=== PATIENT | male | born 1995 | race Caucasian/White ===

== ENCOUNTER 2016-04-22 11:28 | Emergency (ER) | payer OTHER ==
[2016-04-22] MEDS ORDERED: ONDANSETRON 4MG/2ML VIAL (J2405) As Ordered ONE (12:44)
[2016-04-22] MEDS ORDERED: KETOROLAC 30 MG/ML VIAL (J1885) As Ordered ONE (12:44)
[2016-04-22 13:11] LABS: BASO % 0.6 % (0.0-1.0); EOS # 0.4 K/mm3 (0.0-0.50); EOS % 7.2 % (0.0-3.0); LARGE UNSTAINED CELL # 0.2 K/mm3 (0.0-0.4); LARGE UNSTAINED CELL % 2.7 % (0.0-4.0); LYMPH # 1.3 K/mm3 (1.5-6.5); LYMPH % 21.8 % (24.0-44.0); MEAN CORPUSCULAR HGB CONC 34.1 g/dl (32.0-36.5); MEAN CORPUSCULAR VOLUME 88.1 fl (80.0-96.0); MONO # 0.4 K/mm3 (0.0-0.8); MONO % 6.6 % (0.0-5.0); NEUTROPHILS # 3.6 K/mm3 (1.8-7.7); NEUTROPHILS % 61.1 % (36.0-66.0); PLATELET COUNT, AUTOMATED 211 k/mm3 (150-450); RED CELL DISTRIBUTION WIDTH 12.2 % (11.5-14.5); WHITE BLOOD COUNT 5.8 K/mm3 (4.0-10.0)
[2016-04-22 13:31] LABS: ALBUMIN 4.1 GM/DL (3.2-5.2); ALBUMIN/GLOBULIN RATIO 1.21 (1.00-1.93); ALKALINE PHOSPHATASE 76 U/L (45-117); ALT/SGPT 23 U/L (12-78); ANION GAP 8 MEQ/L (8-16); AST/SGOT 14 U/L (15-37); BILIRUBIN,DIRECT 0.2 MG/DL (0.0-0.2); BILIRUBIN,TOTAL 0.7 MG/DL (0.2-1.0); BLOOD UREA NITROGEN 6 MG/DL (7-18); CALCIUM LEVEL 8.6 MG/DL (8.5-10.1); CARBON DIOXIDE LEVEL 26 MEQ/L (21-32); CHLORIDE LEVEL 108 MEQ/L (98-107); CREATININE FOR GFR 0.77 MG/DL (0.70-1.30); GLUCOSE, FASTING 82 MG/DL (70-105); POTASSIUM SERUM 3.8 MEQ/L (3.5-5.1); SODIUM LEVEL 142 MEQ/L (136-145); TOTAL PROTEIN 7.5 GM/DL (6.4-8.2)
--- NOTE | 2016-04-22 14:33 | EDDOCDS ---
Physician Documentation [facility] Name: Riley Whitman Age: 20 yrs Sex: Male : 1995 Arrival Date: 04/22/2016 Time: 11:28 Bed I5 / M5 Private MD: Luis Aguilar [facility] Disposition: 04/22/16 14:05 Discharged to Home/Self Care. Impression: Nausea and vomiting, Diarrhea, unspecified. - Condition is Stable. - Discharge Instructions: Diarrhea, Nausea and Vomiting. - Prescriptions for ZOFRAN ODT 4 mg - dissolve 1 tablet by ORAL route 4 times per day As needed do not chew, do not swallow whole; 10 tablet. - Medication Reconciliation form. - Follow up: Emergency Department; When: As needed; Reason: Worsening of conditions. Follow up: Luis Aguilar [facility]; When: Call to arrange an appointment; Reason: Wound/Symptom Recheck, Recheck today's complaints, Continuance of care. - Problem is an ongoing problem. - Symptoms are unchanged. Historical: - Allergies: no known allergies; - Home Meds: 1. none - PMHx: none; - PSHx: none; - Social history: Smoking status: Patient states was never smoker of tobacco. No barriers to communication noted, The patient speaks fluent [place], Speaks appropriately for age. - Family history: Not pertinent. - : The pt / caregiver states he / she is not on anticoagulants. Home medication list is obtained from the patient. - Exposure Risk Screening:: None identified. Vital Signs: 04/22 11:29 BP 122 / 53; Pulse 81; Resp 18; Temp 97.0(T); Pulse Ox 100% on R/A; Weight 79.38 kg / dem1 175 lbs (R); Height 5 ft. 9 in. (175.26 cm); Pain 9/10; 14:15 BP 131 / 85; Pulse 57; Resp 18; Temp 98.6(TE); Pulse Ox 98% on R/A; Pain 3/10; rn1 11:29 Body Mass Index 25.84 (79.38 kg, 175.26 cm) dem1 MDM: 12:41 NS 0.9% 1000 ml IV at bolus once ordered. cc10 12:42 Ondansetron 4 mg IVP once ordered. cc10 12:42 ketorolac 30 mg IVP once ordered. cc10 12:42 IV Saline Lock ordered. cc10 12:42 Undress patient appropriately for examination ordered. cc10 12:42 Basic Metabolic Profile Ordered. EDMS 12:42 CBC with Diff Ordered. EDMS 12:42 Lipase Ordered. EDMS 12:42 Liver Profile Ordered. EDMS 12:42 Urinalysis Ordered. EDMS 12:45 NOTHING BY MOUTH+DIET ordered. EDMS 13:00 Financial registration complete. mm15 13:05 [facility] Payment Agreement was scanned into [employer] and attached to record. mm15 14:02 Basic Metabolic Profile Reviewed. cc10 14:02 CBC with Diff Reviewed. cc10 14:02 Liver Profile Reviewed. cc10 14:02 Urinalysis Reviewed. cc10 14:02 Lipase Reviewed. cc10 Administered Medications: 12:50 Drug: NS 0.9% 1000 ml [sodium chloride 0.9 % intravenous solution] Route: IV; Rate: ttb bolus; Site: left antecubital; 14:15 Follow up: Response: No Adverse Reaction; IV Status: Completed infusion; IV Intake: ttb 1000ml 12:50 Drug: ketorolac 30 mg [ketorolac 30 mg/mL (1 mL) injection solution (1 mL)] Route: IVP; ttb Site: left antecubital; 13:30 Follow up: Response: No Adverse Reaction; Pain is resolved ttb 13:03 Drug: Ondansetron 4 mg [ondansetron HCl 2 mg/mL intravenous solution (2 mL)] Route: ttb IVP; Site: left antecubital; 14:00 Follow up: Response: No Adverse Reaction ttb Signatures: Dispatcher [facility] EDCoty CrystalRN RN dsOfe Roberto RN RN ttb Leeann Petty mm15 Matt Joe PA-C PAColeen cc10 The chart was reviewed and I authenticate all verbal orders and agree with the evaluation and treatment provided.Attachments: 13:05 [facility] Payment Agreement mm15 MTDD
--- NOTE | 2016-04-22 14:33 | EDDOCDS ---
Nurse's Notes [facility] Name: Riley Whitman Age: 20 yrs Sex: Male : 1995 Arrival Date: 04/22/2016 Time: 11:28 Bed I5 / M5 Private MD: Luis Aguilar [facility] Diagnosis: Nausea and vomiting;Diarrhea, unspecified Presentation: 04/22 11:39 Presenting complaint: Patient states: for the past 5 days pt c/o nausea, vomiting, dsf diarrhea and abdominal pain. Adult Sepsis Screening: The patient does not have new or worsening altered mentation. Patient's respiratory rate is less than 22. Systolic blood pressure is greater than 100. Patient has a qSOFA score of 0- Negative Sepsis Screen. Suicide/Homicide risk assessment- the patient denies having any suicidal and/or homicidal ideations and does not present with any other emotional, behavioral or mental health complaints. 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 Transition of care: patient was not received from another setting of care. 11:39 Acuity: MIGUEL Level 3 dsf 11:39 Method Of Arrival: Walkin/Carried/Asstd dsf Triage Assessment: 11:40 General: Appears in no apparent distress, Behavior is appropriate for age, cooperative. dsf Pain: Location: right lower quadrant and left lower quadrant Pain currently is 3 out of 10 on a pain scale. HIV screening NA for this visit active duty . EENT: Reports pain in throat. GI: Reports diarrhea, lower abdominal pain, nausea, vomiting. 11:40 Neurological: Reports headache lightheaded . dsf Historical: - Allergies: no known allergies; - Home Meds: 1. none - PMHx: none; - PSHx: none; - Social history: Smoking status: Patient states was never smoker of tobacco. No barriers to communication noted, The patient speaks fluent Cymraes, Speaks appropriately for age. - Family history: Not pertinent. - : The pt / caregiver states he / she is not on anticoagulants. Home medication list is obtained from the patient. - Exposure Risk Screening:: None identified. Screenin:03 Screening information is obtained from the patient. Fall risk: No risks identified. ttb Assistance ADL's: requires no assistance with activities of daily living. Abuse/DV Screen: The patient / caregiver reports he/she is:. Nutritional screening: No deficits noted. Advance Directives: Currently, there is no health care proxy. home support is adequate. Assessment: 13:03 Adult Sepsis Screening: The patient does not have new or worsening altered mentation. ttb Patient's respiratory rate is less than 22. Systolic blood pressure is greater than 100. Patient has a qSOFA score of 0- Negative Sepsis Screen. General: Appears in no apparent distress, well nourished, well groomed, Behavior is appropriate for age, cooperative, pleasant. Pain: Location: generalized abd, lower abd when vomiting. Neurological: Level of Consciousness is awake, alert. EENT: Reports sore throat when swallowing . Cardiovascular: Chest pain is denied. Respiratory: No deficits noted. Airway is patent Denies cough, shortness of breath. GI: Abdomen is non- distended Bowel sounds present X 4 quads. Abd is soft X 4 quads. Derm: Skin is normal. Injury Description: No known injury. 14:31 Reassessment: Patient appears in no apparent distress at this time. Patient denies pain ttb at this time. Patient states feeling better. Patient states symptoms have improved. pt states he is ready for DC. . Pain: Denies pain. Neurological: Level of Consciousness is awake, alert. Cardiovascular: Chest pain is denied. Respiratory: No deficits noted. Airway is patent Denies cough, shortness of breath. GI: Denies diarrhea, nausea, vomiting. Vital Signs: 11:29 BP 122 / 53; Pulse 81; Resp 18; Temp 97.0(T); Pulse Ox 100% on R/A; Weight 79.38 kg [facility] (R); Height 5 ft. 9 in. (175.26 cm); Pain 9/10; 14:15 BP 131 / 85; Pulse 57; Resp 18; Temp 98.6(TE); Pulse Ox 98% on R/A; Pain 3/10; rn1 11:29 Body Mass Index 25.84 (79.38 kg, 175.26 cm) [facility] Vitals: 11:29 Log In Time: April 22, 2016 at 11:28. [facility] ED Course: 11:29 Patient visited by Pola Partida. [facility] 11:29 [facility] is Private Physician. dem1 11:29 Patient moved to Waiting dem1 11:30 Patient moved to Pre R[facility] 11:40 Triage Initiated dsf 12:11 Patient moved to Triage 2 dsf 12:29 [facility] cc10 12:29 Milena Smith MD is Attending Physician. cc10 12:38 Patient visited by Matt Joe PA-C. cc10 12:38 Patient visited by Matt Joe PA-C. cc10 12:43 Patient moved to I5 / M5 kr3 13:03 The patient / caregiver is instructed regarding the plan of care and ED course. Patient ttb has correct armband on for positive identification. Placed in gown. Call light in reach. Side rails up X 1. 13:03 Liver Profile Sent. ttb 13:03 Lipase Sent. ttb 13:03 CBC with Diff Sent. ttb 13:03 Basic Metabolic Profile Sent. ttb 13:03 Inserted peripheral IV: 20gauge IV in left antecubital area and blood collected. ttb Patient tolerated the procedure well. Labs drawn. (by ED staff). 13:05 Patient visited by Ofe Kirk RN. ttb 13:05 [facility] Payment Agreement was scanned into [email or web address] and attached to record. mm15 13:41 Urinalysis Sent. ttb 14:05 Luis Aguilar [facility] is Referral Physician. cc10 14:31 Discontinued IV lock intact, bleeding controlled, pressure dressing applied, No ttb redness/swelling at site. No procedures done that require assistance. Administered Medications: 12:50 Drug: NS 0.9% 1000 ml [sodium chloride 0.9 % intravenous solution] Route: IV; Rate: ttb bolus; Site: left antecubital; 14:15 Follow up: Response: No Adverse Reaction; IV Status: Completed infusion; IV Intake: ttb 1000ml 12:50 Drug: ketorolac 30 mg [ketorolac 30 mg/mL (1 mL) injection solution (1 mL)] Route: IVP; ttb Site: left antecubital; 13:30 Follow up: Response: No Adverse Reaction; Pain is resolved ttb 13:03 Drug: Ondansetron 4 mg [ondansetron HCl 2 mg/mL intravenous solution (2 mL)] Route: ttb IVP; Site: left antecubital; 14:00 Follow up: Response: No Adverse Reaction ttb Intake: 14:15 IV: 1000.00ml; Total: 1000.00ml. ttb Order Results: Lab Order: Basic Metabolic Profile; SPEC'M 04/22/16 12:59 Test: GLUCOSE, FASTING; Value: 82; Range: 70-105; Units: MG/DL; Status: F Test: BLOOD UREA NITROGEN; Value: 6; Range: 7-18; Abnormal: Below low normal; Units: MG/DL; Status: F Test: CREATININE FOR GFR; Value: 0.77; Range: 0.70-1.30; Units: MG/DL; Status: F Test: SODIUM LEVEL; Value: 142; Range: 136-145; Units: MEQ/L; Status: F Test: POTASSIUM SERUM; Value: 3.8; Range: 3.5-5.1; Units: MEQ/L; Status: F Test: CHLORIDE LEVEL; Value: 108; Range: 98-107; Abnormal: Above high normal; Units: MEQ/L; Status: F Test: CARBON DIOXIDE LEVEL; Value: 26; Range: 21-32; Units: MEQ/L; Status: F Test: ANION GAP; Value: 8; Range: 8-16; Units: MEQ/L; Status: F Test: CALCIUM LEVEL; Value: 8.6; Range: 8.5-10.1; Units: MG/DL; Status: F Lab Order: CBC with Diff; SPECM 04/22/16 12:59 Test: WHITE BLOOD COUNT; Value: 5.8; Range: 4.0-10.0; Units: K/mm3; Status: F Test: RED BLOOD COUNT; Value: 4.78; Range: 4.30-6.10; Units: M/mm3; Status: F Test: HEMOGLOBIN; Value: 14.4; Range: 14.0-18.0; Units: g/dl; Status: F Test: HEMATOCRIT; Value: 42.1; Range: 42.0-52.0; Units: %; Status: F Test: MEAN CORPUSCULAR VOLUME; Value: 88.1; Range: 80.0-96.0; Units: fl; Status: F Test: MEAN CORPUSCULAR HEMOGLOBIN; Value: 30.0; Range: 27.0-33.0; Units: pg; Status: F Test: MEAN CORPUSCULAR HGB CONC; Value: 34.1; Range: 32.0-36.5; Units: g/dl; Status: F Test: RED CELL DISTRIBUTION WIDTH; Value: 12.2; Range: 11.5-14.5; Units: %; Status: F Test: PLATELET COUNT, AUTOMATED; Value: 211; Range: 150-450; Units: k/mm3; Status: F Test: NEUTROPHILS %; Value: 61.1; Range: 36.0-66.0; Units: %; Status: F Test: LYMPH %; Value: 21.8; Range: 24.0-44.0; Abnormal: Below low normal; Units: %; Status: F Test: MONO %; Value: 6.6; Range: 0.0-5.0; Abnormal: Above high normal; Units: %; Status: F Test: EOS %; Value: 7.2; Range: 0.0-3.0; Abnormal: Above high normal; Units: %; Status: F Test: BASO %; Value: 0.6; Range: 0.0-1.0; Units: %; Status: F Test: LARGE UNSTAINED CELL %; Value: 2.7; Range: 0.0-4.0; Units: %; Status: F Test: NEUTROPHILS #; Value: 3.6; Range: 1.8-7.7; Units: K/mm3; Status: F Test: LYMPH #; Value: 1.3; Range: 1.5-6.5; Abnormal: Below low normal; Units: K/mm3; Status: F Test: MONO #; Value: 0.4; Range: 0.0-0.8; Units: K/mm3; Status: F Test: EOS #; Value: 0.4; Range: 0.0-0.50; Units: K/mm3; Status: F Test: BASO #; Value: 0.0; Range: 0.0-0.2; Units: K/mm3; Status: F Test: LARGE UNSTAINED CELL #; Value: 0.2; Range: 0.0-0.4; Units: K/mm3; Status: F Lab Order: Lipase; SPEC'M 04/22/16 12:59 Test: LIPASE; Value: 144; Range: 73-393; Units: U/L; Status: F Lab Order: Liver Profile; SPEC'M 04/22/16 12:59 Test: AST/SGOT; Value: 14; Range: 15-37; Abnormal: Below low normal; Units: U/L; Status: F Test: ALT/SGPT; Value: 23; Range: 12-78; Units: U/L; Status: F Test: ALKALINE PHOSPHATASE; Value: 76; Range: 45-117; Units: U/L; Status: F Test: BILIRUBIN,TOTAL; Value: 0.7; Range: 0.2-1.0; Units: MG/DL; Status: F Test: BILIRUBIN,DIRECT; Value: 0.2; Range: 0.0-0.2; Units: MG/DL; Status: F Test: TOTAL PROTEIN; Value: 7.5; Range: 6.4-8.2; Units: GM/DL; Status: F Test: ALBUMIN; Value: 4.1; Range: 3.2-5.2; Units: GM/DL; Status: F Test: ALBUMIN/GLOBULIN RATIO; Value: 1.21; Range: 1.00-1.93; Status: F Lab Order: Urinalysis; SPEC'M 04/22/16 13:32 Test: APPEARANCE, URINE; Value: CLEAR; Range: CLEAR; Status: F Test: COLOR, URINE; Value: YELLOW; Range: YELLOW; Status: F Test: PH,URINE; Value: 6.0; Range: 5.0-9.0; Units: UNITS; Status: F Test: SPECIFIC GRAVITY URINE AUTO; Value: 1.016; Range: 1.002-1.035; Status: F Test: PROTEIN, URINE AUTO; Value: NEGATIVE; Range: NEGATIVE; Units: mg/dL; Status: F Test: GLUCOSE, URINE (UA) AUTO; Value: NEGATIVE; Range: NEGATIVE; Units: mg/dL; Status: F Test: KETONE, URINE AUTO; Value: NEGATIVE; Range: NEGATIVE; Units: mg/dL; Status: F Test: UROBILINOGEN, URINE AUTO; Value: 2.0; Range: 0.0-2.0; Abnormal: Above high normal; Units: mg/dL; Status: F Test: BILIRUBIN, URINE AUTO; Value: NEGATIVE; Range: NEGATIVE; Status: F Test: NITRITE, URINE AUTO; Value: NEGATIVE; Range: NEGATIVE; Status: F Test: LEUKOCYTE ESTERASE, URINE AUTO; Value: NEGATIVE; Range: NEGATIVE; Status: F Test: BLOOD, URINE BLOOD; Value: NEGATIVE; Range: NEGATIVE; Status: F Test: WBC, URINE AUTO; Value: 2; Range: 0-3; Units: /HPF; Status: F Test: RBC, URINE AUTO; Value: 1; Range: 0-3; Units: /HPF; Status: F Test: BACTERIA, URINE AUTO; Value: NEGATIVE; Range: NEGATIVE; Status: F Test: SQUAMOUS EPITHELIAL CELL UR AU; Value: 0; Range: 0-6; Units: /HPF; Status: F Test: MUCUS, URINE; Value: SMALL; Range: NEGATIVE; Status: F Test: HYALINE CAST, URINE AUTO; Value: 0; Range: 0-1; Units: /LPF; Status: F Outcome: 14:05 Discharge ordered by Provider. cc10 14:31 Discharge Assessment: Patient awake, alert and oriented x 3. No cognitive and/or ttb functional deficits noted. Patient verbalized understanding of disposition instructions. Patient awake and alert. patient administered narcotics - no. The following High Risk Discharge criteria are identified: None. Discharged to home ambulatory. Condition: good Condition: stable Condition: improved. Discharge instructions given to patient, Instructed on discharge instructions, follow up and referral plans. medication usage, diet, Demonstrated understanding of instructions, medications, diet Prescriptions given X 1. No special radiology studies were completed. Property :Personal belongings accompany Pt. 14:33 Patient left the ED. ttb Signatures: Verona LightRN RN kr3 Coty GuzmánRN RN Pola Crouch1 Ofe Kirk RN RN ttb Leeann Petty mm15 Matt Joe PA-C PA-C cc10 Preston Puckett rn1 MTDD
--- NOTE | 2016-04-24 15:33 | EDDOCDS ---
Physician Documentation [facility] Name: Riley Whitman Age: 20 yrs Sex: Male : 1995 Arrival Date: 04/22/2016 Time: 11:28 Bed I5 / M5 Private MD: Luis Aguilar [facility] Disposition: 04/22/16 14:05 Discharged to Home/Self Care. Impression: Nausea and vomiting, Diarrhea, unspecified. - Condition is Stable. - Discharge Instructions: Diarrhea, Nausea and Vomiting. - Prescriptions for ZOFRAN ODT 4 mg - dissolve 1 tablet by ORAL route 4 times per day As needed do not chew, do not swallow whole; 10 tablet. - Medication Reconciliation form. - Follow up: Emergency Department; When: As needed; Reason: Worsening of conditions. Follow up: Luis Aguilar [facility]; When: Call to arrange an appointment; Reason: Wound/Symptom Recheck, Recheck today's complaints, Continuance of care. - Problem is an ongoing problem. - Symptoms are unchanged. Historical: - Allergies: no known allergies; - Home Meds: 1. none - PMHx: none; - PSHx: none; - Social history: Smoking status: Patient states was never smoker of tobacco. No barriers to communication noted, The patient speaks fluent Belizean, Speaks appropriately for age. - Family history: Not pertinent. - : The pt / caregiver states he / she is not on anticoagulants. Home medication list is obtained from the patient. - Exposure Risk Screening:: None identified. Vital Signs: 04/22 11:29 BP 122 / 53; Pulse 81; Resp 18; Temp 97.0(T); Pulse Ox 100% on R/A; Weight 79.38 kg / dem1 175 lbs (R); Height 5 ft. 9 in. (175.26 cm); Pain 9/10; 14:15 BP 131 / 85; Pulse 57; Resp 18; Temp 98.6(TE); Pulse Ox 98% on R/A; Pain 3/10; rn1 11:29 Body Mass Index 25.84 (79.38 kg, 175.26 cm) dem1 MDM: 12:41 NS 0.9% 1000 ml IV at bolus once ordered. cc10 12:42 Ondansetron 4 mg IVP once ordered. cc10 12:42 ketorolac 30 mg IVP once ordered. cc10 12:42 IV Saline Lock ordered. cc10 12:42 Undress patient appropriately for examination ordered. cc10 12:42 Basic Metabolic Profile Ordered. EDMS 12:42 CBC with Diff Ordered. EDMS 12:42 Lipase Ordered. EDMS 12:42 Liver Profile Ordered. EDMS 12:42 Urinalysis Ordered. EDMS 12:45 NOTHING BY MOUTH+DIET ordered. EDMS 13:00 Financial registration complete. mm15 13:05 [facility] Payment Agreement was scanned into [employer] and attached to record. mm15 14:02 Basic Metabolic Profile Reviewed. cc10 14:02 CBC with Diff Reviewed. cc10 14:02 Liver Profile Reviewed. cc10 14:02 Urinalysis Reviewed. cc10 14:02 Lipase Reviewed. cc10 04/23 07:57 T-Sheet-- Draft Copy was scanned into [employer] and attached to record. gb Administered Medications: 04/22 12:50 Drug: NS 0.9% 1000 ml [sodium chloride 0.9 % intravenous solution] Route: IV; Rate: ttb bolus; Site: left antecubital; 14:15 Follow up: Response: No Adverse Reaction; IV Status: Completed infusion; IV Intake: ttb 1000ml 12:50 Drug: ketorolac 30 mg [ketorolac 30 mg/mL (1 mL) injection solution (1 mL)] Route: IVP; ttb Site: left antecubital; 13:30 Follow up: Response: No Adverse Reaction; Pain is resolved ttb 13:03 Drug: Ondansetron 4 mg [ondansetron HCl 2 mg/mL intravenous solution (2 mL)] Route: ttb IVP; Site: left antecubital; 14:00 Follow up: Response: No Adverse Reaction ttb Signatures: Dispatcher [employer] EDMS Irina Jerome, Reg Reg gb Coty Guzmán RN RN dsf Ofe Kirk RN RN ttb Leeann Petty mm15 Matt Joe PA-C PAColeen cc10 The chart was reviewed and I authenticate all verbal orders and agree with the evaluation and treatment provided.Attachments: 13:05 [facility] Payment Agreement mm15 04/23 07:57 T-Sheet-- Draft Copy gb Chart Complete MTDD
--- NOTE | 2016-04-24 15:33 | EDDOCDS ---
Physician Documentation [facility] Name: Riley Whitman Age: 20 yrs Sex: Male : 1995 Arrival Date: 04/22/2016 Time: 11:28 Bed I5 / M5 Private MD: Luis Aguilar [facility] Disposition: 04/22/16 14:05 Discharged to Home/Self Care. Impression: Nausea and vomiting, Diarrhea, unspecified. - Condition is Stable. - Discharge Instructions: Diarrhea, Nausea and Vomiting. - Prescriptions for ZOFRAN ODT 4 mg - dissolve 1 tablet by ORAL route 4 times per day As needed do not chew, do not swallow whole; 10 tablet. - Medication Reconciliation form. - Follow up: Emergency Department; When: As needed; Reason: Worsening of conditions. Follow up: Luis Aguilar [facility]; When: Call to arrange an appointment; Reason: Wound/Symptom Recheck, Recheck today's complaints, Continuance of care. - Problem is an ongoing problem. - Symptoms are unchanged. Historical: - Allergies: no known allergies; - Home Meds: 1. none - PMHx: none; - PSHx: none; - Social history: Smoking status: Patient states was never smoker of tobacco. No barriers to communication noted, The patient speaks fluent Georgian, Speaks appropriately for age. - Family history: Not pertinent. - : The pt / caregiver states he / she is not on anticoagulants. Home medication list is obtained from the patient. - Exposure Risk Screening:: None identified. Vital Signs: 04/22 11:29 BP 122 / 53; Pulse 81; Resp 18; Temp 97.0(T); Pulse Ox 100% on R/A; Weight 79.38 kg / dem1 175 lbs (R); Height 5 ft. 9 in. (175.26 cm); Pain 9/10; 14:15 BP 131 / 85; Pulse 57; Resp 18; Temp 98.6(TE); Pulse Ox 98% on R/A; Pain 3/10; rn1 11:29 Body Mass Index 25.84 (79.38 kg, 175.26 cm) dem1 MDM: 12:41 NS 0.9% 1000 ml IV at bolus once ordered. cc10 12:42 Ondansetron 4 mg IVP once ordered. cc10 12:42 ketorolac 30 mg IVP once ordered. cc10 12:42 IV Saline Lock ordered. cc10 12:42 Undress patient appropriately for examination ordered. cc10 12:42 Basic Metabolic Profile Ordered. EDMS 12:42 CBC with Diff Ordered. EDMS 12:42 Lipase Ordered. EDMS 12:42 Liver Profile Ordered. EDMS 12:42 Urinalysis Ordered. EDMS 12:45 NOTHING BY MOUTH+DIET ordered. EDMS 13:00 Financial registration complete. mm15 13:05 [facility] Payment Agreement was scanned into [employer] and attached to record. mm15 14:02 Basic Metabolic Profile Reviewed. cc10 14:02 CBC with Diff Reviewed. cc10 14:02 Liver Profile Reviewed. cc10 14:02 Urinalysis Reviewed. cc10 14:02 Lipase Reviewed. cc10 04/23 07:57 T-Sheet-- Draft Copy was scanned into [employer] and attached to record. gb Administered Medications: 04/22 12:50 Drug: NS 0.9% 1000 ml [sodium chloride 0.9 % intravenous solution] Route: IV; Rate: ttb bolus; Site: left antecubital; 14:15 Follow up: Response: No Adverse Reaction; IV Status: Completed infusion; IV Intake: ttb 1000ml 12:50 Drug: ketorolac 30 mg [ketorolac 30 mg/mL (1 mL) injection solution (1 mL)] Route: IVP; ttb Site: left antecubital; 13:30 Follow up: Response: No Adverse Reaction; Pain is resolved ttb 13:03 Drug: Ondansetron 4 mg [ondansetron HCl 2 mg/mL intravenous solution (2 mL)] Route: ttb IVP; Site: left antecubital; 14:00 Follow up: Response: No Adverse Reaction ttb Signatures: Dispatcher [employer] EDMS Irina Jerome, Reg Reg gb Coty Guzmán RN RN dsf Ofe Kirk RN RN ttb Leeann Petty mm15 Matt Joe PA-C PAColeen cc10 The chart was reviewed and I authenticate all verbal orders and agree with the evaluation and treatment provided.Attachments: 13:05 [facility] Payment Agreement mm15 04/23 07:57 T-Sheet-- Draft Copy gb Chart Complete MTDD
--- NOTE | 2016-04-24 15:33 | EDDOCDS ---
Nurse's Notes [facility] Name: Riley Whitman Age: 20 yrs Sex: Male : 1995 Arrival Date: 04/22/2016 Time: 11:28 Bed I5 / M5 Private MD: Luis Aguilar [facility] Diagnosis: Nausea and vomiting;Diarrhea, unspecified Presentation: 04/22 11:39 Presenting complaint: Patient states: for the past 5 days pt c/o nausea, vomiting, dsf diarrhea and abdominal pain. Adult Sepsis Screening: The patient does not have new or worsening altered mentation. Patient's respiratory rate is less than 22. Systolic blood pressure is greater than 100. Patient has a qSOFA score of 0- Negative Sepsis Screen. Suicide/Homicide risk assessment- the patient denies having any suicidal and/or homicidal ideations and does not present with any other emotional, behavioral or mental health complaints. 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 Transition of care: patient was not received from another setting of care. 11:39 Acuity: MIGUEL Level 3 dsf 11:39 Method Of Arrival: Walkin/Carried/Asstd dsf Triage Assessment: 11:40 General: Appears in no apparent distress, Behavior is appropriate for age, cooperative. dsf Pain: Location: right lower quadrant and left lower quadrant Pain currently is 3 out of 10 on a pain scale. HIV screening NA for this visit active duty . EENT: Reports pain in throat. GI: Reports diarrhea, lower abdominal pain, nausea, vomiting. 11:40 Neurological: Reports headache lightheaded . dsf Historical: - Allergies: no known allergies; - Home Meds: 1. none - PMHx: none; - PSHx: none; - Social history: Smoking status: Patient states was never smoker of tobacco. No barriers to communication noted, The patient speaks fluent [place], Speaks appropriately for age. - Family history: Not pertinent. - : The pt / caregiver states he / she is not on anticoagulants. Home medication list is obtained from the patient. - Exposure Risk Screening:: None identified. Screenin:03 Screening information is obtained from the patient. Fall risk: No risks identified. ttb Assistance ADL's: requires no assistance with activities of daily living. Abuse/DV Screen: The patient / caregiver reports he/she is:. Nutritional screening: No deficits noted. Advance Directives: Currently, there is no health care proxy. home support is adequate. Assessment: 13:03 Adult Sepsis Screening: The patient does not have new or worsening altered mentation. ttb Patient's respiratory rate is less than 22. Systolic blood pressure is greater than 100. Patient has a qSOFA score of 0- Negative Sepsis Screen. General: Appears in no apparent distress, well nourished, well groomed, Behavior is appropriate for age, cooperative, pleasant. Pain: Location: generalized abd, lower abd when vomiting. Neurological: Level of Consciousness is awake, alert. EENT: Reports sore throat when swallowing . Cardiovascular: Chest pain is denied. Respiratory: No deficits noted. Airway is patent Denies cough, shortness of breath. GI: Abdomen is non- distended Bowel sounds present X 4 quads. Abd is soft X 4 quads. Derm: Skin is normal. Injury Description: No known injury. 14:31 Reassessment: Patient appears in no apparent distress at this time. Patient denies pain ttb at this time. Patient states feeling better. Patient states symptoms have improved. pt states he is ready for DC. . Pain: Denies pain. Neurological: Level of Consciousness is awake, alert. Cardiovascular: Chest pain is denied. Respiratory: No deficits noted. Airway is patent Denies cough, shortness of breath. GI: Denies diarrhea, nausea, vomiting. Vital Signs: 11:29 BP 122 / 53; Pulse 81; Resp 18; Temp 97.0(T); Pulse Ox 100% on R/A; Weight 79.38 kg [facility] (R); Height 5 ft. 9 in. (175.26 cm); Pain 9/10; 14:15 BP 131 / 85; Pulse 57; Resp 18; Temp 98.6(TE); Pulse Ox 98% on R/A; Pain 3/10; rn1 11:29 Body Mass Index 25.84 (79.38 kg, 175.26 cm) [facility] Vitals: 11:29 Log In Time: April 22, 2016 at 11:28. [facility] ED Course: 11:29 Patient visited by Pola Partida. [facility] 11:29 [facility] is Private Physician. dem1 11:29 Patient moved to Waiting dem1 11:30 Patient moved to Pre RCE [facility] 11:40 Triage Initiated dsf 12:11 Patient moved to Triage 2 dsf 12:29 [facility] cc[facility] 12:29 Milena Smith MD is Attending Physician. cc10 12:38 Patient visited by Matt Joe PA-C. cc10 12:38 Patient visited by Matt Joe PA-C. cc10 12:43 Patient moved to I5 / kr3 13:03 The patient / caregiver is instructed regarding the plan of care and ED course. Patient ttb has correct armband on for positive identification. Placed in gown. Call light in reach. Side rails up X 1. 13:03 Liver Profile Sent. ttb 13:03 Lipase Sent. ttb 13:03 CBC with Diff Sent. ttb 13:03 Basic Metabolic Profile Sent. ttb 13:03 Inserted peripheral IV: 20gauge IV in left antecubital area and blood collected. ttb Patient tolerated the procedure well. Labs drawn. (by ED staff). 13:05 Patient visited by Ofe Kirk RN. ttb 13:05 [facility] Payment Agreement was scanned into [employer] and attached to record. mm15 13:41 Urinalysis Sent. ttb 14:05 Luis Aguilar [facility] is Referral Physician. cc10 14:31 Discontinued IV lock intact, bleeding controlled, pressure dressing applied, No ttb redness/swelling at site. No procedures done that require assistance. 15:59 Patient name changed from Riley\S\\S\Preyer\S\ to Riley\S\Cortez\S\Preyer. EDMS 04/23 07:57 T-Sheet-- Draft Copy was scanned into [employer] and attached to record. gb Administered Medications: 04/22 12:50 Drug: NS 0.9% 1000 ml [sodium chloride 0.9 % intravenous solution] Route: IV; Rate: ttb bolus; Site: left antecubital; 14:15 Follow up: Response: No Adverse Reaction; IV Status: Completed infusion; IV Intake: ttb 1000ml 12:50 Drug: ketorolac 30 mg [ketorolac 30 mg/mL (1 mL) injection solution (1 mL)] Route: IVP; ttb Site: left antecubital; 13:30 Follow up: Response: No Adverse Reaction; Pain is resolved ttb 13:03 Drug: Ondansetron 4 mg [ondansetron HCl 2 mg/mL intravenous solution (2 mL)] Route: ttb IVP; Site: left antecubital; 14:00 Follow up: Response: No Adverse Reaction ttb Intake: 14:15 IV: 1000.00ml; Total: 1000.00ml. ttb Order Results: Lab Order: Basic Metabolic Profile; SPEC'M 04/22/16 12:59 Test: GLUCOSE, FASTING; Value: 82; Range: 70-105; Units: MG/DL; Status: F Test: BLOOD UREA NITROGEN; Value: 6; Range: 7-18; Abnormal: Below low normal; Units: MG/DL; Status: F Test: CREATININE FOR GFR; Value: 0.77; Range: 0.70-1.30; Units: MG/DL; Status: F Test: SODIUM LEVEL; Value: 142; Range: 136-145; Units: MEQ/L; Status: F Test: POTASSIUM SERUM; Value: 3.8; Range: 3.5-5.1; Units: MEQ/L; Status: F Test: CHLORIDE LEVEL; Value: 108; Range: 98-107; Abnormal: Above high normal; Units: MEQ/L; Status: F Test: CARBON DIOXIDE LEVEL; Value: 26; Range: 21-32; Units: MEQ/L; Status: F Test: ANION GAP; Value: 8; Range: 8-16; Units: MEQ/L; Status: F Test: CALCIUM LEVEL; Value: 8.6; Range: 8.5-10.1; Units: MG/DL; Status: F Lab Order: CBC with Diff; SPEC'M 04/22/16 12:59 Test: WHITE BLOOD COUNT; Value: 5.8; Range: 4.0-10.0; Units: K/mm3; Status: F Test: RED BLOOD COUNT; Value: 4.78; Range: 4.30-6.10; Units: M/mm3; Status: F Test: HEMOGLOBIN; Value: 14.4; Range: 14.0-18.0; Units: g/dl; Status: F Test: HEMATOCRIT; Value: 42.1; Range: 42.0-52.0; Units: %; Status: F Test: MEAN CORPUSCULAR VOLUME; Value: 88.1; Range: 80.0-96.0; Units: fl; Status: F Test: MEAN CORPUSCULAR HEMOGLOBIN; Value: 30.0; Range: 27.0-33.0; Units: pg; Status: F Test: MEAN CORPUSCULAR HGB CONC; Value: 34.1; Range: 32.0-36.5; Units: g/dl; Status: F Test: RED CELL DISTRIBUTION WIDTH; Value: 12.2; Range: 11.5-14.5; Units: %; Status: F Test: PLATELET COUNT, AUTOMATED; Value: 211; Range: 150-450; Units: k/mm3; Status: F Test: NEUTROPHILS %; Value: 61.1; Range: 36.0-66.0; Units: %; Status: F Test: LYMPH %; Value: 21.8; Range: 24.0-44.0; Abnormal: Below low normal; Units: %; Status: F Test: MONO %; Value: 6.6; Range: 0.0-5.0; Abnormal: Above high normal; Units: %; Status: F Test: EOS %; Value: 7.2; Range: 0.0-3.0; Abnormal: Above high normal; Units: %; Status: F Test: BASO %; Value: 0.6; Range: 0.0-1.0; Units: %; Status: F Test: LARGE UNSTAINED CELL %; Value: 2.7; Range: 0.0-4.0; Units: %; Status: F Test: NEUTROPHILS #; Value: 3.6; Range: 1.8-7.7; Units: K/mm3; Status: F Test: LYMPH #; Value: 1.3; Range: 1.5-6.5; Abnormal: Below low normal; Units: K/mm3; Status: F Test: MONO #; Value: 0.4; Range: 0.0-0.8; Units: K/mm3; Status: F Test: EOS #; Value: 0.4; Range: 0.0-0.50; Units: K/mm3; Status: F Test: BASO #; Value: 0.0; Range: 0.0-0.2; Units: K/mm3; Status: F Test: LARGE UNSTAINED CELL #; Value: 0.2; Range: 0.0-0.4; Units: K/mm3; Status: F Lab Order: Lipase; SPEC'M 04/22/16 12:59 Test: LIPASE; Value: 144; Range: 73-393; Units: U/L; Status: F Lab Order: Liver Profile; SPEC'M 04/22/16 12:59 Test: AST/SGOT; Value: 14; Range: 15-37; Abnormal: Below low normal; Units: U/L; Status: F Test: ALT/SGPT; Value: 23; Range: 12-78; Units: U/L; Status: F Test: ALKALINE PHOSPHATASE; Value: 76; Range: 45-117; Units: U/L; Status: F Test: BILIRUBIN,TOTAL; Value: 0.7; Range: 0.2-1.0; Units: MG/DL; Status: F Test: BILIRUBIN,DIRECT; Value: 0.2; Range: 0.0-0.2; Units: MG/DL; Status: F Test: TOTAL PROTEIN; Value: 7.5; Range: 6.4-8.2; Units: GM/DL; Status: F Test: ALBUMIN; Value: 4.1; Range: 3.2-5.2; Units: GM/DL; Status: F Test: ALBUMIN/GLOBULIN RATIO; Value: 1.21; Range: 1.00-1.93; Status: F Lab Order: Urinalysis; SPEC'M 04/22/16 13:32 Test: APPEARANCE, URINE; Value: CLEAR; Range: CLEAR; Status: F Test: COLOR, URINE; Value: YELLOW; Range: YELLOW; Status: F Test: PH,URINE; Value: 6.0; Range: 5.0-9.0; Units: UNITS; Status: F Test: SPECIFIC GRAVITY URINE AUTO; Value: 1.016; Range: 1.002-1.035; Status: F Test: PROTEIN, URINE AUTO; Value: NEGATIVE; Range: NEGATIVE; Units: mg/dL; Status: F Test: GLUCOSE, URINE (UA) AUTO; Value: NEGATIVE; Range: NEGATIVE; Units: mg/dL; Status: F Test: KETONE, URINE AUTO; Value: NEGATIVE; Range: NEGATIVE; Units: mg/dL; Status: F Test: UROBILINOGEN, URINE AUTO; Value: 2.0; Range: 0.0-2.0; Abnormal: Above high normal; Units: mg/dL; Status: F Test: BILIRUBIN, URINE AUTO; Value: NEGATIVE; Range: NEGATIVE; Status: F Test: NITRITE, URINE AUTO; Value: NEGATIVE; Range: NEGATIVE; Status: F Test: LEUKOCYTE ESTERASE, URINE AUTO; Value: NEGATIVE; Range: NEGATIVE; Status: F Test: BLOOD, URINE BLOOD; Value: NEGATIVE; Range: NEGATIVE; Status: F Test: WBC, URINE AUTO; Value: 2; Range: 0-3; Units: /HPF; Status: F Test: RBC, URINE AUTO; Value: 1; Range: 0-3; Units: /HPF; Status: F Test: BACTERIA, URINE AUTO; Value: NEGATIVE; Range: NEGATIVE; Status: F Test: SQUAMOUS EPITHELIAL CELL UR AU; Value: 0; Range: 0-6; Units: /HPF; Status: F Test: MUCUS, URINE; Value: SMALL; Range: NEGATIVE; Status: F Test: HYALINE CAST, URINE AUTO; Value: 0; Range: 0-1; Units: /LPF; Status: F Outcome: 14:05 Discharge ordered by Provider. cc10 14:31 Discharge Assessment: Patient awake, alert and oriented x 3. No cognitive and/or ttb functional deficits noted. Patient verbalized understanding of disposition instructions. Patient awake and alert. patient administered narcotics - no. The following High Risk Discharge criteria are identified: None. Discharged to home ambulatory. Condition: good Condition: stable Condition: improved. Discharge instructions given to patient, Instructed on discharge instructions, follow up and referral plans. medication usage, diet, Demonstrated understanding of instructions, medications, diet Prescriptions given X 1. No special radiology studies were completed. Property :Personal belongings accompany Pt. 14:33 Patient left the ED. ttb Signatures: Dispatcher [employer] EDMS Irina Jerome, Verona ArizmendiRN RN radha3 Coty Guzmán RN RN Pola Crouch1 Ofe Kirk RN RN ttb Leeann Petty mm15 Matt Joe, PA-C PA-C cc10 Preston Puckett rn1 Chart Complete MTDD
== END 2016-04-22 14:33 | disposition home or self-care (01) ==
LOC: M ED 11:28
DX: R11.2 Nausea with vomiting, unspecified (principal); R19.7 Diarrhea, unspecified
CPT/HCPCS: 36415; 80048; 80076; 81001; 83690; 85025; 96361; 96374; 96375; 99284; J1885; J2405

== ENCOUNTER 2018-02-05 10:43 | Emergency (ER) | payer OTHER ==
[2018-02-05] MEDS: NS 1,000 ML IV (11:26)
[2018-02-05 11:36] LABS: BASO % 0.8 % (0.0-1.0); EOS # 0.2 10^3/uL (0.0-0.50); EOS % 4.3 % (0.0-3.0); HEMOGLOBIN 15.2 g/dl (13.5-17.5); IMMATURE GRANULOCYTE % 0.2 % (0-3.0); LYMPH # 1.9 10^3/uL (1.5-6.5); LYMPH % 36.7 % (24.0-44.0); MEAN CORPUSCULAR HGB CONC 35.3 g/dl (32.0-36.5); MEAN CORPUSCULAR VOLUME 84.8 fl (80.0-96.0); MONO # 0.5 10^3/uL (0.0-0.8); MONO % 8.7 % (0.0-5.0); NEUTROPHILS # 2.5 10^3/uL (1.8-7.7); NEUTROPHILS % 49.3 % (36.0-66.0); PLATELET COUNT, AUTOMATED 261 10^3/uL (150-450); RED BLOOD COUNT 5.07 10^6/uL (4.30-6.10); RED CELL DISTRIBUTION WIDTH 12.4 % (11.5-14.5); WHITE BLOOD COUNT 5.2 10^3/uL (4.0-10.0)
[2018-02-05 11:40] LABS: KETONE, URINE AUTO RFX NEGATIVE (NEGATIVE); LEUKOCYTE ESTERASE UR AUTO RFX NEGATIVE (NEGATIVE); MUCUS, URINE RFX SMALL (NEGATIVE); NITRITE, URINE AUTO RFX NEGATIVE (NEGATIVE); RBC, URINE AUTO RFX 0 /HPF (0-3); SPECIFIC GRAVITY UR AUTO RFX 1.019 (1.002-1.035); SQUAM EPITHELIAL CELL UR AURFX 0 /HPF (0-6); WBC, URINE AUTO RFX 1 /HPF (0-3)
[2018-02-05] MEDS: ONDANSETRON 4MG/2ML VIAL (J2405) IV (11:43)
[2018-02-05 12:13] LABS: ALBUMIN 4.2 GM/DL (3.2-5.2); ALBUMIN/GLOBULIN RATIO 1.24 (1.00-1.93); ALKALINE PHOSPHATASE 84 U/L (45-117); ALT/SGPT 20 U/L (12-78); AMYLASE 87 U/L (25-115); ANION GAP 9 MEQ/L (8-16); AST/SGOT 12 U/L (7-37); BILIRUBIN,DIRECT 0.2 MG/DL (0.0-0.2); BILIRUBIN,TOTAL 0.7 MG/DL (0.2-1.0); BLOOD UREA NITROGEN 8 MG/DL (7-18); CALCIUM LEVEL 8.7 MG/DL (8.5-10.1); CARBON DIOXIDE LEVEL 26 MEQ/L (21-32); CHLORIDE LEVEL 106 MEQ/L (98-107); GLOMERULAR FILTRATION RATE > 60.0 (>60); GLUCOSE, FASTING 86 MG/DL (70-100); LIPASE 124 U/L (73-393); SODIUM LEVEL 141 MEQ/L (136-145); TOTAL PROTEIN 7.6 GM/DL (6.4-8.2)
== END 2018-02-05 13:48 | disposition home or self-care (01) ==
LOC: M ED 10:43
DX: R10.13 Epigastric pain (principal); R11.2 Nausea with vomiting, unspecified
CPT/HCPCS: J2405

== ENCOUNTER 2018-07-13 08:04 | Emergency (ER) | payer OTHER ==
[~2018-07-13] VITALS: Ht 175.3 cm; Wt 87.4 kg
[~2018-07-13 08:04] MED LIST: HYDR-3715 PO; IBUP80TA PO; ZOFR4TAB14 PO
[2018-07-13] MEDS ORDERED: PYRI1TAB5 PO ×2 (08:10→12:46)
--- NOTE | 2018-07-13 09:54 | REP ---
CT ABDOMEN AND PELVIS WITHOUT IV OR ORAL CONTRAST: HISTORY: Rule out kidney stones. No comparison study. 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 Lung bases are clear on axial CT images. The liver and spleen are normal in size homogeneous in texture. There is one tiny hepatic cyst centrally in the right lobe 6 mm in diameter. No abnormalities noted in the gallbladder or the pancreas. No adrenal lesion is seen on either side. The kidneys are morphologically intact. No hydronephrosis is seen. No intrarenal calculus is seen. No ureteral stone or bladder stone is seen. The urinary bladder is however quite abnormal with a large area of marked bladder wall thickening along the right lateral margin of the bladder. Bladder wall measures up to 2.4 cm in thickness. There is perivesical fat streaking producing blurring of the urinary bladder wall margin diffusely anteriorly and on the right laterally. Prostate, seminal vesicles and peroneal structures are unremarkable. No CT evidence of appendicitis. No abdominal wall defect is seen. No significant bony abnormality. IMPRESSION: Marked thickening of the urinary bladder wall, principally along the right side of the urinary bladder with perivesical edema consistent with some form of severe cystitis. The thrombus along the right side of the bladder could produce some of these findings. No urinary tract calculus is visible. No hydronephrosis seen. Otherwise negative. Electronically Signed by Clemente Araujo MD 07/13/2018 12:04 P
[2018-07-13 10:04] LABS: BASO % 0.8 % (0.0-1.0); EOS # 0.4 10^3/uL (0.0-0.50); EOS % 7.3 % (0.0-3.0); HEMATOCRIT 40.5 % (42.0-52.0); HEMOGLOBIN 14.1 g/dl (13.5-17.5); LYMPH # 1.3 10^3/uL (1.5-6.5); LYMPH % 24.1 % (24.0-44.0); MEAN CORPUSCULAR HEMOGLOBIN 30.1 pg (27.0-33.0); MEAN CORPUSCULAR HGB CONC 34.8 g/dl (32.0-36.5); MEAN CORPUSCULAR VOLUME 86.4 fl (80.0-96.0); MONO # 0.5 10^3/uL (0.0-0.8); NEUTROPHILS % 57.6 % (36.0-66.0); PLATELET COUNT, AUTOMATED 313 10^3/uL (150-450); RED BLOOD COUNT 4.69 10^6/uL (4.30-6.10); WHITE BLOOD COUNT 5.2 10^3/uL (4.0-10.0)
[2018-07-13 10:27] LABS: ALBUMIN 3.8 GM/DL (3.2-5.2); ALT/SGPT 14 U/L (12-78); BILIRUBIN,DIRECT 0.1 MG/DL (0.0-0.2); BILIRUBIN,TOTAL 0.5 MG/DL (0.2-1.0); BLOOD UREA NITROGEN 6 MG/DL (7-18); CALCIUM LEVEL 9.2 MG/DL (8.5-10.1); CARBON DIOXIDE LEVEL 29 MEQ/L (21-32); CHLORIDE LEVEL 107 MEQ/L (98-107); GLOMERULAR FILTRATION RATE > 60.0 (>60); GLUCOSE, FASTING 89 MG/DL (70-100); LIPASE 184 U/L (73-393); SODIUM LEVEL 142 MEQ/L (136-145); TOTAL PROTEIN 7.2 GM/DL (6.4-8.2)
[2018-07-13 11:30] LABS: CHLAMYDIA DNA AMPLIFICATION NEGATIVE (NEGATIVE); GC DNA AMPLIFICATION NEGATIVE (NEGATIVE)
[2018-07-13 13:21] VITALS: BP 122/69
== END 2018-07-13 13:23 | disposition home or self-care (01) ==
LOC: M ED 08:04
DX: N30.00 Acute cystitis without hematuria (principal); Z79.899 Other long term (current) drug therapy

== ENCOUNTER → 2018-08-08 | Outpatient (REF) | payer OTHER ==
[~2018-08-08] MED LIST changes: +PYRI1TAB5 PO
[2018-08-08 14:21] LABS: APPEARANCE, URINE CLEAR (CLEAR); BACTERIA, URINE AUTO NEGATIVE (NEGATIVE); BILIRUBIN, URINE AUTO NEGATIVE (NEGATIVE); BLOOD, URINE BLOOD NEGATIVE (NEGATIVE); COLOR, URINE YELLOW (YELLOW); GLUCOSE, URINE (UA) AUTO NEGATIVE (NEGATIVE); KETONE, URINE AUTO NEGATIVE (NEGATIVE); LEUKOCYTE ESTERASE, URINE AUTO NEGATIVE (NEGATIVE); MUCUS, URINE SMALL (NEGATIVE); NITRITE, URINE AUTO NEGATIVE (NEGATIVE); PROTEIN, URINE AUTO NEGATIVE (NEGATIVE); RBC, URINE AUTO 0 /HPF (0-3); SPECIFIC GRAVITY URINE AUTO 1.021 (1.002-1.035); SQUAMOUS EPITHELIAL CELL UR AU 0 /HPF (0-6); WBC, URINE AUTO 5 /HPF (0-3)
== END ==
LOC: M SMT 13:15
PROVIDERS: ATTEND Nurse Practitioner Women's Health
DX: N32.89 Other specified disorders of bladder (principal)

== ENCOUNTER → 2018-08-15 | Outpatient (REF) | payer OTHER ==
[~2018-08-15] MED LIST changes: +NAPR-885 PO
== END ==
LOC: M SMT 17:21
PROVIDERS: ATTEND Urology
DX: Z01.818 Encounter for other preprocedural examination (principal); D49.4 Neoplasm of unspecified behavior of bladder; N39.0 Urinary tract infection, site not specified

== ENCOUNTER → 2018-08-16 | Outpatient (CLI) | payer OTHER ==
[2018-08-16 11:23] LABS: HEMATOCRIT 43.8 % (42.0-52.0); HEMOGLOBIN 14.8 g/dl (13.5-17.5); MEAN CORPUSCULAR HEMOGLOBIN 28.6 pg (27.0-33.0); MEAN CORPUSCULAR HGB CONC 33.8 g/dl (32.0-36.5); MEAN CORPUSCULAR VOLUME 84.7 fl (80.0-96.0); PLATELET COUNT, AUTOMATED 270 10^3/uL (150-450); RED BLOOD COUNT 5.17 10^6/uL (4.30-6.10); WHITE BLOOD COUNT 4.3 10^3/uL (4.0-10.0)
[2018-08-16 11:31] LABS: PROTHROMBIN TIME 13.3 SECONDS (12.1-14.4)
[2018-08-16 11:32] LABS: PARTIAL THROMBOPLASTIN TIME 32.9 SECONDS (25.4-37.6)
[2018-08-16 11:57] LABS: BLOOD UREA NITROGEN 9 MG/DL (7-18); CARBON DIOXIDE LEVEL 27 MEQ/L (21-32); CHLORIDE LEVEL 107 MEQ/L (98-107); CREATININE FOR GFR 0.95 MG/DL (0.70-1.30); GLOMERULAR FILTRATION RATE > 60.0 (>60); GLUCOSE, FASTING 86 MG/DL (70-100); POTASSIUM SERUM 4.4 MEQ/L (3.5-5.1); SODIUM LEVEL 140 MEQ/L (136-145)
--- NOTE | 2018-08-16 19:51 | ECGEPIP ---
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
--- NOTE | 2018-08-17 01:32 | REP ---
Clinical: Preoperative assessment . Comparison: None . Technique: PA and lateral. Findings: The mediastinum and cardiac silhouette are normal. The lung kaiser are clear and without acute consolidation, effusion, or pneumothorax. The skeletal structures are intact and normal. Impression: 1. No acute cardiopulmonary process. Electronically Signed by Adrian Rosales MD 08/17/2018 01:24 A
== END ==
LOC: M LAB 10:41
PROVIDERS: ATTEND Urology
DX: Z01.818 Encounter for other preprocedural examination (principal); D49.4 Neoplasm of unspecified behavior of bladder

== ENCOUNTER 2018-08-24 11:16 | Day surgery (SDC) | payer OTHER ==
[~2018-08-24] VITALS: Ht 175.3 cm; Wt 88.0 kg
[~2018-08-24 11:16] MED LIST changes: +LIDOCAINE 1% MDV 20ML VIAL SQ PRN; +LR 1,000 ML IV ONE
[2018-08-24] MEDS ORDERED: MIDAZOLAM INJ 2 MG/2 ML VIAL (J2250) As Ordered ONE (14:27)
[2018-08-24] MEDS ORDERED: fentaNYL 250 MCG/5 ML INJECTION (J3010) As Ordered ONE ×2 (14:27→15:32)
[2018-08-24] MEDS ORDERED: PROPOFOL 200 MG/20 ML VIAL As Ordered ONE (14:27)
[2018-08-24] MEDS ORDERED: LIDOCAINE 2% INJ 100 MG/5 ML SDV (FOR ANES.) As Ordered ONE (14:27)
[2018-08-24] MEDS ORDERED: ROCURONIUM BROMIDE 50 MG/5 ML VIAL As Ordered ONE (14:56)
[2018-08-24] MEDS ORDERED: METOCLOPRAMIDE INJ 10MG/2ML VIAL (J2765) As Ordered ONE (15:29)
[2018-08-24] MEDS ORDERED: ONDANSETRON 4MG/2ML VIAL (J2405) As Ordered ONE ×2 (15:29→16:34)
[2018-08-24] MEDS ORDERED: KETOROLAC 60 MG/2 ML VIAL (J1885) As Ordered ONE (15:29)
[2018-08-24] MEDS ORDERED: dexameTHASONE 4 MG/ML 1ML VIAL (J1100) As Ordered ONE (15:30)
[2018-08-24] MEDS ORDERED: NEOSTIGMINE 10 MG/10 ML VIAL (J2710) As Ordered ONE (15:58)
[2018-08-24] MEDS ORDERED: GLYCOPYRROLATE INJ 0.2 MG/ML 2 ML VIAL As Ordered ONE (15:58)
[2018-08-24] MEDS ORDERED: fentaNYL 100 MCG/2 ML INJECTION (J3010) As Ordered ONE (16:34)
[2018-08-24] MEDS ORDERED: PERCOCET 5MG/325MG TAB As Ordered ONE ×2 (16:35→17:00)
[2018-08-24] MEDS ORDERED: MEPERIDINE INJ 25 MG/ML VIAL (J2175) As Ordered ONE (16:35)
[2018-08-24] MEDS: MEPERIDINE INJ 25 MG/ML VIAL (J2175) IV PRN ×2 (16:35→16:40)
[2018-08-24] MEDS: fentaNYL 100 MCG/2 ML INJECTION (J3010) IV PRN ×4 (16:35→16:50)
[2018-08-24] MEDS: PERCOCET 5MG/325MG TAB PO PRN ×2 (16:35→17:05)
[2018-08-24] MEDS ORDERED: diphenhydrAMINE INJ 50MG/ML VIAL (J1200) As Ordered ONE (17:44)
[2018-08-24] MEDS ORDERED: LR 1,000 ML IV SCH (18:00)
[2018-08-24] MEDS ORDERED: ONDANSETRON 4MG/2ML VIAL (J2405) IV PRN (18:00)
[2018-08-24] MEDS ORDERED: METOCLOPRAMIDE INJ 10MG/2ML VIAL (J2765) IV PRN (18:00)
[2018-08-24] MEDS ORDERED: diphenhydrAMINE INJ 50MG/ML VIAL (J1200) IV PRN (18:00)
[2018-08-24 18:50] VITALS: BP 138/77
--- NOTE | 2018-08-25 07:39 | RO ---
DATE OF PROCEDURE: 08/24/2018 PREPROCEDURE DIAGNOSIS: Bladder tumor. POSTPROCEDURE DIAGNOSIS: Bladder tumor. PROCEDURE: Cystoscopy, transurethral resection of bladder tumor (5 cm), examination under anesthesia. 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 ANESTHESIA: General. OPERATIVE INDICATIONS: This is a 22-year-old male who was found to have a large bladder tumor on recent office cystoscopy. He was brought to the operating room today for the above listed procedures. DESCRIPTION OF PROCEDURE: The patient was brought to the operating room and general anesthesia was induced. Prophylactic antibiotics were infused. He was then placed in dorsal lithotomy position and then a bimanual digital rectal examination under anesthesia was performed. It was notable for a very small prostate. The bladder was freely mobile and there were no palpable bladder masses. At this point, the patient was prepped and draped in the usual sterile fashion. We then went in with the resectoscope and the bladder was thoroughly examined. The only abnormality seen was a large tumor on the right lateral posterior wall. At this point, the tumor was completely resected. I made sure to get samples of the muscle layer. The specimens were sent separately as bladder tumor. I then resected the bladder tumor base when I was resecting deeper to get samples of the muscle layer. All the specimens were removed using the Interface21 evacuator. I then cauterized the base of resection using the coagulation current. I kept doing this until there was good hemostasis. Once satisfied with the hemostasis the resectoscope was removed and an 18 [place] Lyle catheter was inserted into the bladder. The balloon was filled with 10 mL of sterile water and the catheter was connected to gravity drainage. This marked the conclusion of the procedure. The patient was then taken out of dorsal lithotomy position, awakened from anesthesia and transported to the recovery room in stable condition. Estimated blood loss: 5 mL. Complications: None. Specimen: Bladder tumor, resecting the bladder tumor base. Plan: The patient will follow up in the clinic in approximately 1 week for catheter removal and to discuss the pathology results.
== END 2018-08-24 19:05 | disposition home or self-care (01) ==
LOC: M SDC 11:16
PROVIDERS: ATTEND Urology
DX: R39.89 Other symptoms and signs involving the genitourinary system (principal); I10 Essential (primary) hypertension; E78.5 Hyperlipidemia, unspecified; F41.9 Anxiety disorder, unspecified; F32.9 Major depressive disorder, single episode, unspecified; E11.9 Type 2 diabetes mellitus without complications; I25.2 Old myocardial infarction; F17.210 Nicotine dependence, cigarettes, uncomplicated; Z79.84 Long term (current) use of oral hypoglycemic drugs; Z79.899 Other long term (current) drug therapy
CPT/HCPCS: 52235; 88307; J0690; J1100; J1200; J1885; J2175; J2250; J2405; J2710; J2765; J3010